=== PATIENT | male | born 1960 | race African-American/Black ===

== ENCOUNTER 2019-01-02 22:06 | Observation (INO) | payer OTHER, SELFPAY ==
[2019-01-02 22:59] LABS: #Basophils 0.1 thou/uL (0.0-0.2); #Eosinphils 0.2 thou/uL (0.0-0.7); #Lymphocytes 3.6 thou/uL (1.20-3.40); #Monocytes 0.9 thou/uL (0.11-0.59); %Basophils 1.1 % (0.0-1.0); %Eosinophils 2.4 % (0.0-10.0); %Lymphocytes 46.7 % (21.0-51.0); %Monocytes 11.3 % (0.0-10.0); %Neutrophils 38.5 % (42.0-75.0); Hemoglobin 11.7 g/dL (14.0-18.0); Mean Corpuscular Hemoglobin 31.4 pg (27.0-31.0); Platelet Count 227 thou/uL (130-400); RBC Distribution Width 11.8 % (11.5-14.5); Red Blood Cell (RBC) Count 3.72 mill/uL (4.70-6.10); White Blood Cell (WBC) Count 7.7 thou/uL (4.8-10.8)
[2019-01-02 23:20] LABS: ALT (SGPT) 18 U/L (8-55); AST (SGOT) 27 U/L (5-34); Albumin 3.9 g/dL (3.5-5.0); Alkaline Phosphatase 48 U/L (40-150); Anion Gap 11 mmol/L (10-20); BUN (Urea Nitrogen) 13 mg/dL (8.4-25.7); Bilirubin, Total 0.5 mg/dL (0.2-1.2); CK (CPK) 341 U/L (30-200); Calc. Creatinine Clearance 0 mL/min (70-130); Calcium 8.7 mg/dL (7.8-10.44); Carbon Dioxide 23 mmol/L (22-29); Chloride 107 mmol/L (98-107); Estimated GFR-MDRD 67; Globulin 1.9 g/dL (2.4-3.5); Glucose 93 mg/dL (70-105); Lipase 42 U/L (8-78); Potassium 4.1 mmol/L (3.5-5.1); Protein, Total 5.8 g/dL (6.0-8.3); Sodium 137 mmol/L (136-145)
[2019-01-03] MEDS: Sodium Chloride 0.9% 1,000 ML IV SCH ×2 (02:45→10:16)
[2019-01-03] MEDS ORDERED: Ondansetron ODT 4 MG TAB SL PRN (02:50)
[2019-01-03] MEDS ORDERED: Ondansetron PF 4 MG/2 ML Vial IVP PRN (02:50)
[2019-01-03] MEDS ORDERED: Acetaminophen 325 MG TAB PO PRN (02:50)
[2019-01-03 03:35] VITALS: BMI 24.7
[2019-01-03 08:23] VITALS: TEMP 98.5
[2019-01-03] MEDS ORDERED: Aspirin 81 mg Enteric Coated Tablet PO SCH (09:00)
[2019-01-03] MEDS ORDERED: IMATINIB MESYLATE 400 MG PO SCH (09:00)
[2019-01-03 11:29] VITALS: BP 160/74
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
--- NOTE | 2019-01-03 14:51 | HP ---
CHIEF COMPLAINT: Left shoulder discomfort and left great toe tingling. HISTORY: This patient is a 58-year-old male who states that he has a history of reflux and when he tries to lie flat on his back, his reflux is worse. So for years, he has been lying on his left side. He also remains very active, doing yard work. Reports that for the last couple of weeks, he has been having some aching sensation in his left arm that thinks he might be related to his rotator cuff. Yesterday, he started feeling a sensation of tightness around his left biceps, feeling like someone had their hand on it that in and out of itself was not terribly concerning to him, but then he developed some tingling in his left great toe, and at that point, it was concerned and presented to the emergency department. He specifically denies having any numbness or tingling in the left upper extremity. Denies having any chest pain or associated shortness of breath. He reports the toe symptoms have completely resolved, and the shoulder symptoms remain with some aching with some movement. The biceps symptoms have not recurred. He initially presented to the emergency department at [facility] where he had a CT scan showing some subtle small-vessel abnormalities that were most likely skewing toward the right parietal region. His labs noted subtle elevation in his CK and also creatinine of 1.48. The patient reported that he works out in the heat a great deal and a couple of days ago, felt like he might have had a "heat stroke," because he just did not feel normal in general. The patient was referred to this facility because it was felt the patient would benefit from MRI and neurology evaluation. REVIEW OF SYSTEMS: All other systems reviewed and all pertinent positives and negatives noted in History of Present Illness. PAST MEDICAL HISTORY: Notable for CML, requiring oral Gleevec, followed by Dr. Bernard Goodwin. He has hyperlipidemia for which he takes Pravachol and believes this might be causing him some myalgias at times and gastroesophageal reflux. He has a history of asthma, but reports he really has not had any problems with that since childhood. He has osteoarthritis. PAST SURGICAL HISTORY: Back surgery over 30 years ago, right ankle surgery with Dr. Torres with some hardware. Colonoscopy in 2013 with polypectomy. FAMILY HISTORY: Reviewed, nothing contributory to this admission. SOCIAL HISTORY: The patient continues to smoke half pack of cigarettes per day. Denies alcohol or drugs. He is . He is full code, and his would be his surrogate decision maker. ALLERGIES: NONE. CURRENT MEDICATIONS: 1. Pravastatin 40 mg p.o. at bedtime. 2. Gleevec 400 mg p.o. daily. 3. Also p.r.n. aqkg-smx-eudpspm ranitidine. PHYSICAL EXAMINATION: VITAL SIGNS: Here, temperature 98.5, pulse 58, respirations 18, O2 saturation 98% on room air, and BP 113/59. GENERAL APPEARANCE: Age-appropriate male. He appears generally to be quite healthy, is relatively muscular build and is thin. HEENT: PERRL. Has no OP lesions. Upper dentures in place. NECK: Supple and symmetric with no lymphadenopathy, JVD, or bruits. HEART: Regular rate and rhythm without murmurs, gallops, or rubs. LUNGS: Clear to auscultation bilaterally with no wheezes or rales. ABDOMEN: Soft, nontender, and nondistended. Positive bowel sounds. No masses. No organomegaly. EXTREMITIES: No cyanosis, clubbing, or edema. He has normal pulses in the posterior tibial and dorsalis pedis distribution bilaterally. The left great toe has normal sensation as does the rest of the extremities. He has 5/5 strength in all extremities both proximal and distal. PSYCHIATRIC: Normal affect and behavior. SKIN: Normal turgor. LABORATORY DATA: Here, white count 7.7, hemoglobin 11.7, and platelets 227. Sodium 137, potassium 4.1, chloride 107, BUN 13, and creatinine 1.34. LFTs normal. CK 341. Albumin 3.9. IMPRESSION AND PLAN: 1. Abnormal CT of the brain consistent with asymmetric small-vessel disease. Given the patient's risk factors of smoking and hyperlipidemia, we will go ahead and get the MRI of the brain here, and he has a consult to Neurology already ordered and pending. 2. Left shoulder discomfort. His exam is most consistent with rotator cuff tendinitis. This can be followed up as an outpatient. I doubt it is related to neurologic symptoms. 3. Left great toe paresthesias, resolved. Suspect local compression given the patient's work. 4. Mild rhabdomyolysis. CK at the outside facility initially was over 400. It is now 341, certainly reasonably safe level for this individual. He continues with some fluids. 5. Elevated creatinine. The patient appears to have at least acute renal insufficiency. His creatinine was over 1.4 at the outside facility, now down to 1.34. I have no prior values to know if this is chronic. We will continue fluids for now. Certainly, could be some component of dehydration given his work, although could be chronic given the subtle anemia as well. 6. Anemia, may be delusional, may be related to some chronic kidney disease. Unknown at this point, however, it is very mild and can be followed up as an outpatient. 7. Chronic myeloid leukemia. Continue with Gleevec. 8. Hyperlipidemia. Continue rosuvastatin. 9. Disposition: We will get the patient up and walking today. I suspect once we get the MRI and Neurology consult, we will be able to discharge him later today. We will go ahead and start him on some low-dose aspirin given his risk factors and the CT findings. Job ID: [id number]
[2019-01-03] MEDS ORDERED: Atorvastatin Calcium 10 MG TAB PO SCH (21:00)
--- NOTE | 2019-01-10 17:01 | EKG ---
Test Reason : CHEST PAIN Blood Pressure : / mmHG Vent. Rate : 048 BPM Atrial Rate : 048 BPM P-R Int : 106 ms QRS Dur : 082 ms QT Int : 428 ms P-R-T Axes : 069 038 066 degrees QTc Int : 382 ms Sinus bradycardia with short TX Minimal voltage criteria for LVH, may be normal variant Borderline ECG Confirmed by KARIN JEFFERY, SERGIO ([id number]), general expeditor NADYA JUSTICE ([id number] on 01/10/2019 5:00:33 PM Referred By: Confirmed By:SERGIO FRAZIER MD
== END 2019-01-03 13:27 | disposition home or self-care (01) ==
LOC: ERS 22:06 → 2SE 01-03 00:10
PROVIDERS: ADMIT Hospitalist; ATTEND Hospitalist
DX: I67.9 Cerebrovascular disease, unspecified (principal); R20.2 Paresthesia of skin; F17.210 Nicotine dependence, cigarettes, uncomplicated; D64.9 Anemia, unspecified; C92.10 Chronic myeloid leukemia, BCR/ABL-positive, not having achieved remission; E78.5 Hyperlipidemia, unspecified; K21.9 Gastro-esophageal reflux disease without esophagitis; M62.82 Rhabdomyolysis; Z79.899 Other long term (current) drug therapy
CPT/HCPCS: 36415; 80053; 82550; 83690; 84484; 85025; 93005; 96360; 96361; G0378